=== PATIENT | male | born 1955 | race Caucasian/White ===

== ENCOUNTER 2017-04-29 16:59 | Emergency (ER) | payer OTHER ==
[~2017-04-29] VITALS: Ht 177.8 cm; Wt 69.4 kg
--- NOTE | ~2017-04-29 | EKG ---
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
[~2017-04-29 16:59] MED LIST: ALBUTEROL INHAL17 GM IH; ALPRAZOLAM; AMBIEN 5 MG TABL5 M1 PO; ASPIRIN325 PO; ATENOLOL 50 MG50 M1; ATENOLOL 50 MG50 M1 PO; ATIVAN0.5 MG PO; ATIVAN1 MG PO; CARISOPRODOL; CARISOPRODOL 3350 M1; CARISOPRODOL 3350 MG PO; FLEXERIL PO; HCTZ; HYDROCHLOROTHIA25 M1 PO; HYDROCODONE; HYDROXYZINE HCL25 M1 PO; IBUPROFEN 800800 M1 PO; IBUPROFEN 800800 MG PO; IRON325; LISINOPRIL40 MG; LISINOPRIL40 MG PO; LORTAB 5 MG/5001 TA1 PO; MORPHINE SULFAT60 M3 PO; MULTIVITAMINS1 EAC7 PO; NORCO 5-325 TA1 EACH PO; NORVASC10 MG; NORVASC10 MG PO; PERCOCET; PERCOCET 5-3251 EACH PO; PERCOCET 7.5-31 EACH PO; PREDNISONE 10 M10 M1 PO; PREDNISONE 20 M20 MG PO; PREDNISONE50 MG PO; PREVACID15 MG; PROAIR HFA8.5 GM IH; PROTONIX40 MG PO; PROZAC; PT NOT TAKING MEDS; TESSALON200 MG PO; ULTRAM 50MG TAB50 MG PO; VENTOLIN HFA INH8 GM; XANAX 0.25 MG0.25 MG PO; ZPAK PO; [UNRECOGNIZED DRUG - OTHER]
[2017-04-29 17:14] LABS: ABSOLUTE NEUTROPHILS 5.1 thou/uL (1.4-8.2); BASOPHILS 1.2 % (0.0-2.0); EOSINOPHILS 0.6 % (0.0-3.0); HEMATOCRIT 30.4 % (42.0-52.0); HEMOGLOBIN 9.7 gm/dL (14.0-18.0); LYMPHOCYTES 13.7 % (24.0-44.0); MCH 27.5 pg (26.0-34.0); MCHC 31.9 g/dL (28.0-37.0); MCV 86.1 fL (80.0-100.0); PLATELET COUNT 225 thou/uL (150-400); POLYS 73.5 % (36.0-66.0); RBC 3.53 mil/uL (4.50-6.00); RDW 16.2 % (10.5-14.5); WBC 6.9 thou/uL (4.0-11.0)
[2017-04-29 17:22] LABS: ANION GAP 10 mmol/L (7-16); BUN 18 mg/dL (7-18); CALCIUM 9.4 mg/dL (8.5-10.1); CHLORIDE 108 mmol/L (98-107); CO2 26 mmol/L (21-32); CREATININE 1.2 mg/dL (0.7-1.3); GLUCOSE 153 mg/dL (74-106); POTASSIUM 3.8 mmol/L (3.5-5.1); SODIUM 144 mmol/L (136-145)
[2017-04-29 17:31] LABS: ALBUMIN 3.7 g/dL (3.4-5.0); DIRECT BILIRUBIN 0.3 mg/dL (<0.1-0.3); LIPASE 534 U/L (73-393); SGOT 92 U/L (15-37); SGPT 78 U/L (30-65); TOTAL BILIRUBIN 0.7 mg/dL (<0.1-1.0); TOTAL PROTEIN 8.4 g/dL (6.4-8.2); TROPONIN-I < 0.04 ng/mL (<0.06)
[2017-04-29 18:48] LABS: URINE BILIRUBIN NEGATIVE (Negative); URINE BLOOD NEGATIVE (Negative); URINE CLARITY CLEAR; URINE COLOR YELLOW; URINE GLUCOSE-RANDOM* NEGATIVE (Negative); URINE KETONES NEGATIVE (Negative); URINE LEUKOCYTES NEGATIVE (Negative); URINE NITRITE NEGATIVE (Negative); URINE PROTEIN (DIPSTICK) NEGATIVE (Negative); URINE SPECIFIC GRAVITY <= 1.005 (1.005-1.035); URINE UROBILINOGEN 0.2 E.U./dl (0.2-1.0)
[2017-04-29 18:52] VITALS: BP 125/56
[2017-04-29 18:56] LABS: AMP/METHAMP Negative (Negative); BARBITURATES Negative (Negative); BENZODIAZEPINES POSITIVE (Negative); COCAINE POSITIVE (Negative); METHADONE Negative (Negative); OPIATES POSITIVE (Negative); PCP Negative (Negative)
[2017-04-29] MEDS ORDERED: ONDANSETRON HCL4 M2 PO (19:02)
== END 2017-04-29 19:10 | disposition home or self-care (01) ==
LOC: ER 16:59
PROVIDERS: Nurse Practitioner
DX: R11.2 Nausea with vomiting, unspecified (principal); F15.10 Other stimulant abuse, uncomplicated; I10 Essential (primary) hypertension; M41.9 Scoliosis, unspecified; M19.90 Unspecified osteoarthritis, unspecified site; G25.81 Restless legs syndrome; F17.210 Nicotine dependence, cigarettes, uncomplicated

== ENCOUNTER 2017-11-23 14:35 | Inpatient (IN) | payer OTHER ==
[~2017-11-23] VITALS: Ht 165.1 cm; Wt 51.9 kg
[~2017-11-23 14:35] MED LIST changes: +ONDANSETRON HCL4 M2 PO
[2017-11-23 14:36] VITALS: BP 107/61
[2017-11-23 15:47] LABS: HEMATOCRIT 36.4 % (42.0-52.0); HEMOGLOBIN 11.7 gm/dL (14.0-18.0); MCH 27.2 pg (26.0-34.0); MCHC 32.3 g/dL (28.0-37.0); MCV 84.2 fL (80.0-100.0); PLATELET COUNT 301 thou/uL (150-400); RBC 4.32 mil/uL (4.50-6.00); RDW 26.9 % (10.5-14.5); WBC 10.5 thou/uL (4.0-11.0)
[2017-11-23 15:57] LABS: CALCIUM 9.1 mg/dL (8.5-10.1); CREATININE 1.2 mg/dL (0.7-1.3); POTASSIUM 4.5 mmol/L (3.5-5.1)
[2017-11-23 16:02] LABS: ALBUMIN 3.5 g/dL (3.4-5.0); DIRECT BILIRUBIN 0.3 mg/dL (<0.1-0.3); TOTAL BILIRUBIN 0.5 mg/dL (<0.1-1.0); TOTAL PROTEIN 8.4 g/dL (6.4-8.2)
[2017-11-23 16:32] LABS: ABSOLUTE NEUTROPHILS 9.5 thou/uL (1.4-8.2)
[2017-11-23 16:33] LABS: ANISOCYTOSIS 2+; TARGET CELLS OCCASIONAL
[2017-11-23 17:15] LABS: URINE BILIRUBIN NEGATIVE (Negative); URINE BLOOD NEGATIVE (Negative); URINE CLARITY CLEAR; URINE COLOR YELLOW; URINE GLUCOSE-RANDOM* NEGATIVE (Negative); URINE KETONES NEGATIVE (Negative); URINE LEUKOCYTES-REFLEX NEGATIVE (Negative); URINE NITRITE-REFLEX NEGATIVE (Negative); URINE PROTEIN (DIPSTICK) NEGATIVE (Negative); URINE SPECIFIC GRAVITY 1.025 (1.005-1.035); URINE UROBILINOGEN 0.2 E.U./dl (0.2-1.0)
[2017-11-23 17:23] LABS: AMP/METHAMP Negative (Negative); BARBITURATES Negative (Negative); BENZODIAZEPINES POSITIVE (Negative); COCAINE Negative (Negative); METHADONE Negative (Negative); OPIATES POSITIVE (Negative); PCP Negative (Negative)
[2017-11-23 18:42] VITALS: BP 104/67
[2017-11-23 18:45] LABS: TSH 1.099 uIU/mL (0.358-3.740)
[2017-11-23 19:09] VITALS: BP 107/54
[2017-11-23 20:30] VITALS: BP 119/78
[2017-11-23 22:45] LABS: TROPONIN-I <0.06 ng/mL (<0.06)
[2017-11-23 23:07] LABS: BE(vivo) 0.8 mmol/L (-2 to +3); HCO3 28.9 mmol/L (22.0-26.0); PCO2 63.6 mmHg (35.0-45.0); PO2 75.4 mmHg (80.0-100.0); pH 7.275 (7.360-7.450); sO2 92.9 % (92.0-98.0)
[2017-11-23 23:13] LABS: HEMOGLOBIN 11.3 gm/dL (14.0-18.0)
[2017-11-24 00:21] LABS: BE(vivo) 0.8 mmol/L (-2 to +3); HCO3 28.3 mmol/L (22.0-26.0); PCO2 58.9 mmHg (35.0-45.0); PO2 87.9 mmHg (80.0-100.0); sO2 95.6 % (92.0-98.0)
[2017-11-24 00:50] VITALS: BP 90/53; BP 90/535
[2017-11-24 05:00] VITALS: BP 95/54
[2017-11-24 05:16] LABS: HEMATOCRIT 33.8 % (42.0-52.0); HEMOGLOBIN 10.8 gm/dL (14.0-18.0); MCH 27.1 pg (26.0-34.0); MCHC 32.1 g/dL (28.0-37.0); MCV 84.5 fL (80.0-100.0); PLATELET COUNT 256 thou/uL (150-400); RDW 25.9 % (10.5-14.5); WBC 11.7 thou/uL (4.0-11.0)
[2017-11-24 05:32] LABS: ANION GAP 6 mmol/L (7-16); BUN 32 mg/dL (7-18); CALCIUM 8.2 mg/dL (8.5-10.1); CHLORIDE 102 mmol/L (98-107); CHOLESTEROL 117 mg/dL (<200); CO2 30 mmol/L (21-32); CREATININE 1.2 mg/dL (0.7-1.3); GLUCOSE 131 mg/dL (74-106); HDL CHOLESTEROL 46 mg/dL (>40); LDL CHOLESTEROL 63 mg/dL (<100); MAGNESIUM 1.5 mg/dL (1.8-2.4); POTASSIUM 3.8 mmol/L (3.5-5.1); SODIUM 138 mmol/L (136-145); TC:HDL 2.5 Ratio (Not establshd); TRIGLYCERIDE 43 mg/dL (<150); VLDL 9 mg/dL (<40)
[2017-11-24 05:37] LABS: SERUM ASSESSMENT Clear
[2017-11-24 07:35] LABS: ABSOLUTE NEUTROPHILS 9.5 thou/uL (1.4-8.2); ANISOCYTOSIS 1+
[2017-11-24 08:25] VITALS: BP 103/58
[2017-11-24 10:23] LABS: % SATURATION 9 % (20-39); IRON 23 ug/dL (65-175); TIBC 267 ug/dL (250-450)
[2017-11-24 11:29] VITALS: BP 103/55
[2017-11-24 16:37] VITALS: BP 97/52
[2017-11-24 21:10] VITALS: BP 101/61
[2017-11-25 04:10] VITALS: BP 106/55
[2017-11-25 07:15] LABS: ALBUMIN 2.5 g/dL (3.4-5.0); CREATININE 1.4 mg/dL (0.7-1.3); POTASSIUM 3.6 mmol/L (3.5-5.1); TOTAL BILIRUBIN 0.4 mg/dL (<0.1-1.0); TOTAL PROTEIN 6.5 g/dL (6.4-8.2)
[2017-11-25 08:11] VITALS: BP 120/58
[2017-11-25 11:08] VITALS: BP 123/56
[2017-11-25 15:18] VITALS: BP 144/67
[2017-11-25 20:00] VITALS: BP 159/71
[2017-11-26 05:30] VITALS: BP 153/76
[2017-11-26 07:50] VITALS: BP 163/71
[2017-11-26 07:56] LABS: HEMATOCRIT 29.2 % (42.0-52.0); HEMOGLOBIN 9.5 gm/dL (14.0-18.0); MCH 27.4 pg (26.0-34.0); MCHC 32.6 g/dL (28.0-37.0); PLATELET COUNT 202 thou/uL (150-400); RBC 3.48 mil/uL (4.50-6.00); RDW 26.2 % (10.5-14.5); WBC 18.6 thou/uL (4.0-11.0)
[2017-11-26 08:25] LABS: ABSOLUTE NEUTROPHILS 16.6 thou/uL (1.4-8.2)
[2017-11-26 08:26] LABS: ANISOCYTOSIS 2+
[2017-11-26 08:27] LABS: POLYCHROMASIA OCCASIONAL; SCHISTOCYTES OCCASIONAL
[2017-11-26 08:28] LABS: POIKILOCYTOSIS SLIGHT
[2017-11-26 08:29] VITALS: BP 163/71
== END 2017-11-26 09:26 | disposition home or self-care (01) | DRG 917 ==
LOC: ER 14:35 → 3W 17:43 → EROBS 17:43 → 3W 19:25
PROVIDERS: Emergency Medicine; Hospitalist; Nurse Practitioner; Specialist
PROC: 5A09357 Assistance with Respiratory Ventilation, Less than 24 Consecutive Hours, Continuous Positive Airway Pressure (ICD-10-PCS; principal; 2017-11-23)
PROC: 5A09357 Assistance with Respiratory Ventilation, Less than 24 Consecutive Hours, Continuous Positive Airway Pressure (ICD-10-PCS; 2017-11-24)
PROC: 05HY33Z Insertion of Infusion Device into Upper Vein, Percutaneous Approach (ICD-10-PCS; 2017-11-24)
DX: T40.602A Poisoning by unspecified narcotics, intentional self-harm, initial encounter (principal); E43 Unspecified severe protein-calorie malnutrition; J96.01 Acute respiratory failure with hypoxia; M62.82 Rhabdomyolysis; Z68.43 Body mass index [BMI] 50.0-59.9, adult; I10 Essential (primary) hypertension; M19.90 Unspecified osteoarthritis, unspecified site; G25.81 Restless legs syndrome; F17.210 Nicotine dependence, cigarettes, uncomplicated; R04.0 Epistaxis; G89.29 Other chronic pain; F12.90 Cannabis use, unspecified, uncomplicated; D64.9 Anemia, unspecified; Z79.82 Long term (current) use of aspirin; Y92.89 Other specified places as the place of occurrence of the external cause; Z86.19 Personal history of other infectious and parasitic diseases; Z79.899 Other long term (current) drug therapy
CPT/HCPCS: 10879; 27000